=== PATIENT | male | born 1950 | race Caucasian/White ===

== ENCOUNTER → 2016-04-10 | Outpatient (CLI) | payer OTHER ==
[~2016-04-10] VITALS: Ht 180.3 cm; Wt 80.7 kg
[~2016-04-10] MED LIST: IBUPROFEN 200200 M1 PO; NABUMETONE 750750 M1 PO; UNICOMPLEX M TA1 TA1 PO
--- NOTE | ~2016-04-10 | HPC ---
[facility] [address] [place] [address] PAIN MANAGEMENT CONSULTATION Name: ALVARADO LANDAVERDE Room #: REG KIN Bagley#: [id number] Admission: 04/10/16 Attend Phys: Ghassan Long DO Discharge: Date of : 48 Report #: [id number] THIS REPORT FOR: //name// CC: Wade Long HISTORY OF PRESENT ILLNESS: The patient is a very pleasant 65-year-old gentleman seen in consultation at the request of Dr. Baker for evaluation of pain, primarily low back, right foot to leg. The patient notes pain started the end of December, he was lifting the tailgate on his pickup truck, had acute exacerbation of some pain and had a "pop" in his back. States his back has felt "unstable" since. Has been using ibuprofen 400 to 600 mg 3 to 4 times a day, still however, has continuous, steady, constant, shooting, throbbing, sharp stabbing pain. He rates anywhere from 3-6 on a 0-10 visual analog scale. Notes the pain has been getting worse past several weeks. Some relief when he is recumbent. Has paresthesia in the right lateral thigh to the foot. Denies bowel or bladder continence changes or saddle anesthesia. REVIEW OF SYSTEMS: Complete review of systems was attached to chart and gone over with the patient, he is , does not smoke or drink alcohol to excess. Has enjoyed remarkably good health, 12-point review of systems is essentially unremarkable. He is using some untt-xue-[id number] anti-inflammatories including tumeric and boswellia along with OTC ibuprofen. No surgical history. He works in [employer]. Continued to work despite pain. Pain impact score is fairly nominal not affecting his mood, relationships with other people or enjoyment of life. Does, however, significantly affect general activity, sleep and work. PHYSICAL EXAMINATION: VITAL SIGNS: Reveals a 5 feet 11 inches, 178 pound gentleman, BMI is 24.8 kilograms per meter squared. Blood pressure is 134/86, pulse 94, respirations 16. NEUROLOGIC: Cranial nerves 2-12 are grossly intact. HEENT: Pupils equal, reactive to light and accommodation. Extraocular muscles are intact. There is no nystagmus with lateral gaze deviation, may have a trace of exophthalmus. Thyroid is modestly enlarged, no nodules are noted. NECK: Cervical range of motion is good. Upper extremity strength is preserved. HEART: Regular rhythmical without murmur. LUNGS: Clear to auscultation. EXTREMITIES: Rises from chair using armrest, minimally antalgic gait, is unable to walk on his right toe. Lumbar flexion is good to 90 degrees. Right dorsiflexion strength is about 2 to 3/5. Lower extremity extension is 3 to 4/5. Plantar flexion is 2 to 3/5. All other muscle groups are 5/5 including all of the left leg. Positive straight leg raise at 30 degrees on the right, negative on the left. Patellar reflex is diminished on the right, 1/4 versus 2/4 on the left. Achilles reflexes are generally symmetric. SKIN/INTEGUMENT: Intact. [address] [address] PAIN MANAGEMENT CONSULTATION Name: ALVARADO LANDAVERDE Room #: REG KIN Bagley#: [id number] Admission: 04/10/16 Attend Phys: Ghassan Long DO Discharge: Date of : 48 Report #: [id number] DIAGNOSTIC STUDIES: There are no recent diagnostic studies available for evaluation at this time. ASSESSMENT: Symptomatic lumbar radiculopathy by clinical exam in a patient who has failed conservative therapy and has continued with physical activity, range of motion, stretching. He has a fairly physical job, which he has continued to do albeit with pain. RECOMMENDATION: We will seek authorization for epidural injection, midline L4-L5 at next visit. If this does not afford adequate relief, we will need to get MRI of the lumbar spine. Thank you for allowing me to participate in the patient's care. I will keep you abreast of his progress. <ELECTRONICALLY SIGNED> By: Ghassan Long DO 04/12/16 0824 [id number] [id number] Ghassan Long DO /nt
[2016-04-10 11:44] VITALS: BP 134/86
== END ==
LOC: PAIN 10:52
DX: M54.16 Radiculopathy, lumbar region (principal)

== ENCOUNTER → 2016-04-17 | Outpatient (CLI) | payer OTHER ==
[~2016-04-17] VITALS: Ht 180.3 cm; Wt 82.9 kg
--- NOTE | ~2016-04-17 | HPC ---
[facility] [place] [address] PAIN MANAGEMENT CONSULTATION Name: SAIMAMAGGI Room #: REG Jett Bagley#: [id number] Admission: 04/17/16 Attend Phys: Ghassan Long DO Discharge: Date of : 48 Report #: [id number] THIS REPORT FOR: //name// CC: Wade Long PROCEDURE: Lumbar epidural injection under fluoroscopy. INDICATIONS: Symptomatic lumbar radiculopathy, right L5 pattern, the patient prior seen in consultation on 04/10/2016, we sought authorization for the injection, which was received today. The patient presents to pain clinic today for the injection. He notes subjective pain score is 1-2, but he still has paresthesia in the left calf, numbness in the foot going the great toe. ASSESSMENT: Symptomatic lumbar radiculopathy. RECOMMENDATION: Lumbar epidural injection under fluoroscopy today, left midline at L5-S1. Follow up in 3 weeks for reevaluation and consideration for repeat injection if indicated clinically. PROCEDURE NOTE PROCEDURE: Lumbar epidural steroid injection. PROCEDURE NOTE: After both written and informed consent to include risk of spinal cord damage, increased pain, weakness and dural puncture, the patient was taken to the fluoroscopy suite, placed in the prone position. After sterile prep and drape, a skin wheal with lidocaine was raised. A 22-gauge epidural Tuohy needle was inserted in the midline at L5-S1 with good loss to resistance. Negative aspiration for cerebrospinal fluid or blood was noted. Then 1 mL of Omnipaque under biplanar fluoroscopy showed good spread within the epidural space. This was followed with 80 mg of triamcinolone plus 1 mL of 1.5% preservative-free Xylocaine, 0.5 mL Xylocaine was then injected to flush the needle; it was removed. The patient was monitored for an appropriate period of time and discharged in good and stable condition. <ELECTRONICALLY SIGNED> By: Ghassan Long DO 04/19/16 0729 [id number] Ghassan Long DO /nt
[2016-04-17 10:44] VITALS: BP 141/84
== END ==
LOC: PAIN 09:07
DX: M54.16 Radiculopathy, lumbar region (principal)

== ENCOUNTER → 2016-05-22 | Outpatient (CLI) | payer OTHER ==
[~2016-05-22] VITALS: Ht 180.3 cm; Wt 79.1 kg
--- NOTE | ~2016-05-22 | HPC ---
[facility] [place] [address] PAIN MANAGEMENT CONSULTATION Name: SAIMAMAGGI Room #: REG Jett Bagley#: [id number] Admission: 05/22/16 Attend Phys: Ghassan Long DO Discharge: Date of : 48 Report #: [id number] THIS REPORT FOR: //name// CC: Wade Long The patient is a 65-year-old gentleman previously seen in the pain clinic 05/08/2016. The patient was given a lumbar epidural injection at that time, returns to pain clinic today noting while injection helped with overall pain, he still has drop foot on the right, weakness, anterior tibialis. 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 Concerned about weakness in the right leg. He does take Relafen 750 mg b.i.d. PHYSICAL EXAMINATION: Shows pleasant 65-year-old gentleman, BMI is 24.3 kilograms per meter squared. Vital signs stable as noted in the EMR. Rises from chair using armrest. Gait is tandem. Again, modestly antalgic gait with loss of dorsiflexion in right foot. ASSESSMENT: Symptomatic lumbar radiculopathy. RECOMMENDATIONS: Repeat epidural injection under fluoroscopy today. Follow up in 1 month for reevaluation. Cancel if doing well. PROCEDURE NOTE: Lumbar epidural injection under fluoroscopy. PROCEDURE NOTE: After both written and informed consent to include risk of spinal cord damage, increased pain, weakness and dural puncture, the patient was taken to the fluoroscopy suite, placed in the prone position. After sterile prep and drape, a skin wheal with lidocaine was raised. A 22-gauge epidural Tuohy needle was inserted in the midline at L5-S1 with good loss to resistance. Negative aspiration for cerebrospinal fluid or blood was noted. Then 1 mL of Omnipaque under biplanar fluoroscopy showed good spread within the epidural space. This was followed with 80 mg of triamcinolone plus 1 mL of 1.5% preservative-free Xylocaine, 0.5 mL Xylocaine was then injected to flush the needle; it was removed. The patient was monitored for an appropriate period of time and discharged in good and stable condition. <ELECTRONICALLY SIGNED> By: Ghassan Long DO 05/24/16 1105 [id number] [id number] Ghassan Long DO /nt
[2016-05-22 09:46] VITALS: BP 140/76
== END | disposition home or self-care (01) ==
LOC: PAIN 07:29
DX: M54.16 Radiculopathy, lumbar region (principal)

== ENCOUNTER → 2020-02-03 | Outpatient (CLI) | payer OTHER | LOC: RAD 10:04 | PROVIDERS: ATTEND Nurse Practitioner | DX: M48.02 Spinal stenosis, cervical region (principal) ==